=== PATIENT | male | born 1945 | race Caucasian/White ===

== ENCOUNTER 2017-05-08 19:42 | Emergency (ER) | payer MEDICARE, BC ==
[2017-05-08] MEDS ORDERED: Bacitracin Zinc 1 Packet ONE (20:11)
== END 2017-05-08 20:15 | disposition home or self-care (01) ==
LOC: BURERS 19:42
DX: S01.112A Laceration without foreign body of left eyelid and periocular area, initial encounter (principal); W01.0XXA Fall on same level from slipping, tripping and stumbling without subsequent striking against object, initial encounter
CPT/HCPCS: 12013

== ENCOUNTER 2019-12-31 08:02 | Emergency (ER) | payer MEDICARE, BC | END 2019-12-31 08:40 | disposition home or self-care (01) | LOC: BURERS 08:02 | DX: S01.81XA Laceration without foreign body of other part of head, initial encounter (principal); W26.8XXA Contact with other sharp object(s), not elsewhere classified, initial encounter | CPT/HCPCS: 12013 ==